=== PATIENT | female | born 1985 ===

== ENCOUNTER → 2017-10-19 09:08 | Outpatient (CLI) | payer OTHER ==
[~2017-10-19] VITALS: Ht 152.4 cm; Wt 81.6 kg
== END | disposition home or self-care (01) ==
LOC: PPHC 09:08
DX: M54.89 Other dorsalgia (principal); M54.32 Sciatica, left side

== ENCOUNTER → 2017-10-20 17:16 | Outpatient (CLI) | payer OTHER ==
[~2017-10-20] VITALS: Ht 152.4 cm; Wt 81.6 kg
== END | disposition home or self-care (01) ==
LOC: PPHC 17:16
DX: M54.5 Low back pain (principal)

== ENCOUNTER → 2017-10-20 19:53 | Outpatient (CLI) | payer OTHER | END | disposition home or self-care (01) | LOC: RAD 19:53 | DX: M54.9 Dorsalgia, unspecified (principal) ==

== ENCOUNTER 2018-04-14 16:05 | Outpatient (CLI) | payer OTHER | END 2018-04-14 16:06 | disposition home or self-care (01) | LOC: RAD 16:05 | DX: M54.89 Other dorsalgia (principal); M54.2 Cervicalgia ==

== ENCOUNTER 2018-04-27 09:44 | Outpatient (CLI) | payer OTHER | END 2018-04-27 09:45 | disposition home or self-care (01) | LOC: LAB 09:44 | DX: R53.1 Weakness (principal); R53.83 Other fatigue; M54.89 Other dorsalgia ==

== ENCOUNTER → 2018-05-04 | Emergency (ER) | payer OTHER ==
[~2018-05-04] VITALS: Ht 167.6 cm; Wt 82.6 kg
[~2018-05-04] MED LIST: DICLOFENAC POTA50 MG
== END | disposition home or self-care (01) ==
LOC: ER 17:47
DX: R51 Headache (principal); R42 Dizziness and giddiness; R20.0 Anesthesia of skin

== ENCOUNTER 2018-05-24 09:46 | Outpatient (CLI) | payer OTHER | END 2018-05-25 15:38 | disposition home or self-care (01) | LOC: MRI 09:46 | DX: R51 Headache (principal); R42 Dizziness and giddiness | CPT/HCPCS: 70553 ==

== ENCOUNTER 2018-08-05 00:58 | Emergency (ER) | payer OTHER ==
[~2018-08-05] VITALS: Ht 167.6 cm; Wt 84.8 kg
[2018-08-05] MEDS ORDERED: [UNRECOGNIZED DRUG - OTHER] (01:17)
[2018-08-05] MEDS ORDERED: KETO10TA2 PO (03:05)
[2018-08-05] MEDS ORDERED: NORFLEX100MG PO (03:05)
== END 2018-08-05 03:14 | disposition home or self-care (01) ==
LOC: ER 00:58
DX: S13.4XXA Sprain of ligaments of cervical spine, initial encounter (principal); S33.5XXA Sprain of ligaments of lumbar spine, initial encounter; M54.32 Sciatica, left side; V49.9XXA Car occupant (driver) (passenger) injured in unspecified traffic accident, initial encounter; Y93.89 Activity, other specified; Y92.488 Other paved roadways as the place of occurrence of the external cause; Y99.8 Other external cause status

== ENCOUNTER 2019-02-09 14:47 | Outpatient (CLI) | payer OTHER ==
[~2019-02-09 14:47] MED LIST changes: +KETO10TA2 PO; +NORFLEX100MG PO; +[UNRECOGNIZED DRUG - OTHER]
== END 2019-02-09 14:51 | disposition home or self-care (01) ==
LOC: LAB 14:47
DX: R42 Dizziness and giddiness (principal); R51 Headache

== ENCOUNTER 2019-02-22 18:17 | Emergency (ER) | payer OTHER ==
[~2019-02-22] VITALS: Ht 167.6 cm; Wt 86.2 kg
== END 2019-02-22 20:12 | disposition home or self-care (01) ==
LOC: ER 18:17
DX: H66.92 Otitis media, unspecified, left ear (principal); H66.42 Suppurative otitis media, unspecified, left ear

== ENCOUNTER 2019-07-19 18:54 | Emergency (ER) | payer OTHER ==
[~2019-07-19] VITALS: Ht 170.2 cm; Wt 86.2 kg
== END 2019-07-19 22:15 | disposition home or self-care (01) ==
LOC: ER 18:54
DX: R51 Headache (principal)

== ENCOUNTER 2022-02-10 10:00 | Outpatient (CLI) | payer OTHER | END 2022-02-10 10:25 | disposition home or self-care (01) | LOC: SONOGRAMA 10:00 | PROVIDERS: ATTEND Internal Medicine Endocrinology, Diabetes & Metabolism | DX: E04.8 Other specified nontoxic goiter (principal) ==

== ENCOUNTER 2023-01-28 20:10 | Emergency (ER) | payer OTHER ==
[~2023-01-28] VITALS: Ht 167.6 cm; Wt 86.2 kg
== END 2023-01-28 22:09 | disposition home or self-care (01) ==
LOC: ER 20:10
DX: M62.838 Other muscle spasm (principal); Z88.8 Allergy status to other drugs, medicaments and biological substances